=== PATIENT | male | born 1955 ===

== ENCOUNTER 2017-02-28 12:31 | Emergency (ER) | payer OTHER ==
[2017-02-28] MEDS ORDERED: Sodium Chloride 0.9% 1,000 ML IV STA (13:01)
--- NOTE | 2017-02-28 13:08 | ED PDOC ---
HPI: Abdomen Time Seen by Provider: 02/28/17 12:57 Chief Complaint (Nursing): Back Pain Chief Complaint (Provider): Back Pain History Per: Patient History/Exam Limitations: no limitations Onset/Duration Of Symptoms: Days (x 2) Additional Complaint(s): Dirk is a 61 year old male, with a past medical history of kidney stones, who presents to the emergency department with right flank pain radiating to front since last night. Denies nausea, vomiting, dysuria and fever. PMD: No Family Provider Past Medical History Reviewed: Historical Data, Nursing Documentation, Vital Signs Vital Signs: Last Vital Signs Temp 98.0 F 02/28/17 12:47 Pulse 74 02/28/17 12:47 Resp 16 02/28/17 12:47 BP 177/84 H 02/28/17 12:47 Pulse Ox 97 02/28/17 16:35 - Medical History Other PMH: Kidney stones - Surgical History Surgical History: No Surg Hx - Family History Family History: States: No Known Family Hx - Home Medications Home Medications: Ambulatory Orders Medication Instructions Recorded Ciprofloxacin HCl [Cipro] 500 mg PO BID #20 tab 02/28/17 Naproxen [Naprosyn] 500 mg PO Q12H #20 tab 02/28/17 Tamsulosin [Flomax] 0.4 mg PO DAILY #6 cap 02/28/17 - Allergies Allergies/Adverse Reactions: Allergies Allergy/AdvReac Type Severity Reaction Status Date / Time No Known Allergies Allergy Verified 02/28/17 12:47 Review of Systems ROS Statement: Except As Marked, All Systems Reviewed And Found Negative Constitutional: Negative for: Fever Gastrointestinal: Positive for: Other (Right Flank Pain radiating to front). Negative for: Nausea, Vomiting Genitourinary Male: Negative for: Dysuria Physical Exam - Reviewed Nursing Documentation Reviewed: Yes Vital Signs Reviewed: Yes - Physical Exam Gastrointestinal/Abdominal: Positive for: Soft. Negative for: Tenderness Back: Negative for: L CVA Tenderness, R CVA Tenderness - Laboratory Results Result Diagrams: 02/28/17 15:53 02/28/17 15:53 - ECG O2 Sat by Pulse Oximetry: 97 (RA) Pulse Ox Interpretation: Normal Medical Decision Making Medical Decision Making: Time: 12:59 Plan: - CT Abdominal and Pelvis without PO or IV Contrast - Urine Dipstick - Sodium Chloride 0.9% 1,000 ml IV 100 MLS/HR - Toradol 30 mg IVP Time: 13:56 CT Abdominal and Pelvis without PO or IV Contrast FINDINGS: LOWER THORAX: 4 millimeter nodule in the right lower lobe; recommend short-term interval follow-up CT scan of the chest. LIVER: Fatty infiltration of the liver. GALLBLADDER AND BILE DUCTS: Unremarkable. PANCREAS: Unremarkable. No gross lesion or ductal dilatation. SPLEEN: Unremarkable. ADRENALS: 1.3 centimeter nodule in the right adrenal gland; recommend correlation with noncontrast gradient echo MRI.. KIDNEYS AND URETERS: Bilateral punctate nonobstructive renal calculi with a 7 millimeter obstructive calculus in the proximal right ureter and associated hipolito ureteral and perirenal edema. VASCULATURE: Unremarkable. No aortic aneurysm. BOWEL: Unremarkable. No obstruction. No gross mural thickening. APPENDIX: Unremarkable. Normal appendix. PERITONEUM: Unremarkable. No free fluid. No free air. LYMPH NODES: Unremarkable. No enlarged lymph nodes. BLADDER: Unremarkable. REPRODUCTIVE: Unremarkable. BONES: No acute fracture. OTHER FINDINGS: None. IMPRESSION: Bilateral punctate nonobstructive renal calculi with a 7 millimeter obstructive calculus in the proximal right ureter and associated hipolito ureteral and perirenal edema. 1.3 centimeter nodule in the right adrenal gland; recommend correlation with noncontrast gradient echo MRI.. 4 millimeter nodule in the right lower lobe; recommend short-term interval follow-up CT scan of the chest. Time: 16:[address] Rebolledo. Time: 16:31 - Rocephin IV 1gm duplex 50 ml IVPB Scribe Attestation: Documented by Jai Washington, acting as a scribe for Ren Armijo MD Provider Scribe Attestation: All medical record entries made by the Scribe were at my direction and personally dictated by me. I have reviewed the chart and agree that the record accurately reflects my personal performance of the history, physical exam, medical decision making, and the department course for this patient. I have also personally directed, reviewed, and agree with the discharge instructions and disposition. Disposition - Clinical Impression Clinical Impression: Kidney stones - Patient ED Disposition Is Patient to be Admitted: No - Disposition Referrals: Rory Rebolledo MD [Staff Provider] - Disposition: Routine/Home Disposition Time: 16:37 Condition: FAIR Prescriptions: Ciprofloxacin HCl [Cipro] 500 mg PO BID #20 tab Naproxen [Naprosyn] 500 mg PO Q12H #20 tab Tamsulosin [Flomax] 0.4 mg PO DAILY #6 cap Instructions: Kidney Stones (ED) Forms: [email or web address] (Lao)
--- NOTE | 2017-02-28 13:57 | CT ---
PROCEDURE: CT Abdomen and Pelvis without intravenous contrast HISTORY: r/o kidney stone COMPARISON: None. TECHNIQUE: Technique. Contrast Dose: Radiation dose: Total exam DLP = mGy-cm. This CT exam was performed using one or more of the following dose reduction techniques: Automated exposure control, adjustment of the mA and/or kV according to patient size, and/or use of iterative reconstruction technique. FINDINGS: LOWER THORAX: 4 millimeter nodule in the right lower lobe; recommend short-term interval follow-up CT scan of the chest. LIVER: Fatty infiltration of the liver. GALLBLADDER AND BILE DUCTS: Unremarkable. PANCREAS: Unremarkable. No gross lesion or ductal dilatation. SPLEEN: Unremarkable. ADRENALS: 1.3 centimeter nodule in the right adrenal gland; recommend correlation with noncontrast gradient echo MRI.. KIDNEYS AND URETERS: Bilateral punctate nonobstructive renal calculi with a 7 millimeter obstructive calculus in the proximal right ureter and associated hipolito ureteral and perirenal edema. VASCULATURE: Unremarkable. No aortic aneurysm. BOWEL: Unremarkable. No obstruction. No gross mural thickening. APPENDIX: Unremarkable. Normal appendix. PERITONEUM: Unremarkable. No free fluid. No free air. LYMPH NODES: Unremarkable. No enlarged lymph nodes. BLADDER: Unremarkable. REPRODUCTIVE: Unremarkable. BONES: No acute fracture. OTHER FINDINGS: None. IMPRESSION: Bilateral punctate nonobstructive renal calculi with a 7 millimeter obstructive calculus in the proximal right ureter and associated hipolito ureteral and perirenal edema. 1.3 centimeter nodule in the right adrenal gland; recommend correlation with noncontrast gradient echo MRI.. 4 millimeter nodule in the right lower lobe; recommend short-term interval follow-up CT scan of the chest.
[2017-02-28 16:08] LABS: ALB/GLOB RATIO 1.3 (1.0-2.1); ALKALINE PHOSPHATASE 81 U/L (38-126); ALT/SGPT 51 U/L (21-72); AST/SGOT 29 U/L (17-59); BILIRUBIN,TOTAL 0.5 mg/dl (0.2-1.3); BLOOD UREA NITROGEN 16 mg/dl (9-20); CALCIUM 9.2 mg/dL (8.4-10.2); CARBON DIOXIDE 20 mmol/L (22-30); CHLORIDE 110 mmol/L (98-107); GFR AFRICAN-AMERICAN > 60; GLUCOSE,RANDOM 128 mg/dL (75-110); POTASSIUM 4.2 MMOL/L (3.6-5.0); SODIUM 142 mmol/l (132-148); TOTAL PROTEIN 7.9 G/DL (6.3-8.2)
[2017-02-28 16:26] LABS: BASO # 0.1 K/uL (0.0-0.2); BASO % 0.6 % (0.0-2.0); EOS % 0.3 % (0.0-4.0); HEMATOCRIT 47.2 % (35.0-51.0); LYMPH # 1.4 K/uL (1.0-4.3); LYMPH % 9.1 % (20.0-40.0); MEAN CORPUSCULAR HEMOGLOBIN 29.3 pg (27.0-31.0); MEAN PLATELET VOLUME 8.8 fl (7.2-11.7); MONO % 6.6 % (0.0-10.0); NEUT # 12.5 K/uL (1.8-7.0); NEUT % 83.4 % (50.0-75.0); PLATELET COUNT 240 K/uL (130-400); RED CELL DISTRIBUTION WIDTH 13.6 % (11.5-14.5)
[2017-02-28] MEDS ORDERED: cefTRIAXone IV 1 gm in Dextros 50 ML IVPB STA (16:31)
[2017-02-28 17:42] LABS: NEUTROPHIL 76 % (42-75); TOTAL CELLS COUNTED 100
[2017-02-28 17:58] VITALS: BP 128/78; PULSE 78; RESP 17; TEMP 97; O2SAT 98
== END 2017-02-28 17:58 | disposition home or self-care (01) ==
LOC: H.ER 12:31
DX: N20.2 Calculus of kidney with calculus of ureter (principal)
CPT/HCPCS: 74176; 80053; 85025; 87086; 96374; 96375; 96376; 99282; J0696; J1885; J7040

== ENCOUNTER 2017-03-03 13:59 | Emergency (ER) | payer OTHER ==
[2017-03-03 14:07] VITALS: RESP 16; TEMP 98; O2SAT 100
[2017-03-03] MEDS ORDERED: Oxycodone/Acetaminophen 5/325 mg Tab PO STA (14:33)
--- NOTE | 2017-03-03 14:51 | ED PDOC ---
HPI: Back Time Seen by Provider: 03/03/17 14:10 Chief Complaint (Nursing): Back Pain Chief Complaint (Provider): Right Flank Pain History Per: Patient History/Exam Limitations: no limitations Onset/Duration Of Symptoms: Days (few days prior to arrival ) Current Symptoms Are (Timing): Still Present Additional Complaint(s): Dirk Henry is a 61 year old male presenting to the ED for an evaluation of peristent right flank pain from a previous diagnosis of a 7 mm kidney stone. The patient reports receiving pain killers, Naprosyn, taken without relief. He additionally states that he has a follow up appointment with his urologist next week, but the persistent pain prompted his ED visit today. PMD: None Provided Past Medical History Reviewed: Historical Data, Nursing Documentation, Vital Signs Vital Signs: Last Vital Signs Temp 98.0 F 03/03/17 14:06 Pulse 106 H 03/03/17 14:06 Resp 16 03/03/17 14:06 BP 171/96 H 03/03/17 14:06 Pulse Ox 100 03/03/17 14:06 - Medical History PMH: No Chronic Diseases - Surgical History Surgical History: No Surg Hx - Family History Family History: States: No Known Family Hx - Home Medications Home Medications: Ambulatory Orders Medication Instructions Recorded Ciprofloxacin HCl [Cipro] 500 mg PO BID #20 tab 02/28/17 Naproxen [Naprosyn] 500 mg PO Q12H #20 tab 02/28/17 Tamsulosin [Flomax] 0.4 mg PO DAILY #6 cap 02/28/17 oxyCODONE/Acetaminophen [Percocet 1 tab PO Q4H #24 tab 03/03/17 5/325 mg Tab] - Allergies Allergies/Adverse Reactions: Allergies Allergy/AdvReac Type Severity Reaction Status Date / Time No Known Allergies Allergy Verified 02/28/17 12:47 Review of Systems ROS Statement: Except As Marked, All Systems Reviewed And Found Negative Constitutional: Negative for: Fever, Chills Musculoskeletal: Positive for: Back Pain (right flank pain) Physical Exam - Reviewed Nursing Documentation Reviewed: Yes Vital Signs Reviewed: Yes - Physical Exam Appears: Positive for: Non-toxic. Negative for: No Acute Distress (patient is in minor distress secondary to pain) Head Exam: Positive for: ATRAUMATIC, NORMOCEPHALIC Skin: Positive for: Normal Color, Warm, Dry Eye Exam: Positive for: Normal appearance, EOMI ENT: Positive for: Normal ENT Inspection Neck: Positive for: Normal, Painless ROM Cardiovascular/Chest: Positive for: Regular Rate, Rhythm. Negative for: Edema, Murmur Respiratory: Positive for: Normal Breath Sounds. Negative for: Respiratory Distress Gastrointestinal/Abdominal: Positive for: Normal Exam, Soft. Negative for: Tenderness Back: Positive for: Normal Inspection. Negative for: L CVA Tenderness, R CVA Tenderness Extremity: Positive for: Normal ROM. Negative for: Deformity Neurologic/Psych: Positive for: Alert, Oriented (x3). Negative for: Motor/ Sensory Deficits - ECG O2 Sat by Pulse Oximetry: 100 (RA) Pulse Ox Interpretation: Normal Medical Decision Making Medical Decision Making: Time: 14:10 Impression: persistent right flank pain s/p 7 mm kidney stone diagnosis Plan: * Percocet 5/325 mg Tab 1 tab PO Checked registry, pt has had no opiod prescriptions within past year. Discussed with pt possible addiction/abuse effects of opiod rx. Patient understands consequences of addiction. Scribe Attestation: Documented by Mere White, acting as a scribe for Vishal Henderson MD. Provider Scribe Attestation: All medical record entries made by the Scribe were at my direction and personally dictated by me. I have reviewed the chart and agree that the record accurately reflects my personal performance of the history, physical exam, medical decision making, and the department course for this patient. I have also personally directed, reviewed, and agree with the discharge instructions and disposition. Disposition - Clinical Impression Clinical Impression: Renal colic - Disposition Disposition: Routine/Home Disposition Time: 14:33 Condition: STABLE Prescriptions: oxyCODONE/Acetaminophen [Percocet 5/325 mg Tab] 1 tab PO Q4H #24 tab Instructions: Renal Colic (ED) Forms: [employer] (Lao)
[2017-03-03] MEDS ORDERED: Oxycodone/Acetaminophen 5/325 mg Tab ONE (14:56)
[2017-03-03 15:04] VITALS: BP 150/89; PULSE 92
== END 2017-03-03 15:02 | disposition home or self-care (01) ==
LOC: H.ER 13:59
DX: N23 Unspecified renal colic (principal)

== ENCOUNTER 2017-05-19 14:41 | Emergency (ER) | payer SELFPAY ==
[2017-05-19 15:19] VITALS: BP 121/76; PULSE 71; RESP 20; TEMP 98.6; O2SAT 97
[2017-05-19] MEDS ORDERED: Dexamethasone 4 mg/1 ml ONE (16:06)
--- NOTE | 2017-05-19 16:06 | ED PDOC ---
Lower Extremity Pain/Injury Time Seen by Provider: 05/19/17 16:03 Chief Complaint (Nursing): Lower Extremity Problem/Injury Chief Complaint (Provider): Sciatica Pain History Per: Patient History/Exam Limitations: no limitations Onset/Duration Of Symptoms: Days, Waxing/Waning, Gradual, Persistent, Worse Since (three days; pt home medicating on apap and naproxen without success) Current Symptoms Are (Timing): Still Present Severity: Mild - Risk Factors DVT Risk Factors: Pos: None Neg: Decreased Mobility, Decreased Activity, Extremity Immobiliztion, Extremity Fractured Past Medical History Vital Signs: Last Vital Signs Temp 98.6 F 05/19/17 15:17 Pulse 71 05/19/17 15:17 Resp 20 05/19/17 15:17 BP 121/76 05/19/17 15:17 Pulse Ox 97 05/19/17 15:17 - Family History Family History: States: No Known Family Hx - Home Medications Home Medications: Ambulatory Orders Medication Instructions Recorded Ciprofloxacin HCl [Cipro] 500 mg PO BID #20 tab 02/28/17 Naproxen [Naprosyn] 500 mg PO Q12H #20 tab 02/28/17 Tamsulosin [Flomax] 0.4 mg PO DAILY #6 cap 02/28/17 oxyCODONE/Acetaminophen [Percocet 1 tab PO Q4H #24 tab 03/03/17 5/325 mg Tab] - Allergies Allergies/Adverse Reactions: Allergies Allergy/AdvReac Type Severity Reaction Status Date / Time No Known Allergies Allergy Verified 05/19/17 15:16 Wells Criteria for PE - Wells Criteria for Pulmonary Embolism Clinical Signs and Symptoms of DVT: No P.E is #1 Diagnosis, or Equally Likely: No Heart Rate >100: No Immobilization at least 3 days;Surgery previous 4 weeks: No Previous, objectively diagnosed PE or DVT: No Hemoptysis: No Malignancy w/treatment within 6 months, or palliative: No Total Score: 0 Review of Systems Musculoskeletal: Positive for: Leg Pain (left leg pain originating in dorsal left hip and transiting to dorsal foot) Physical Exam - Reviewed Nursing Documentation Reviewed: Yes Vital Signs Reviewed: Yes - Physical Exam Appears: Positive for: Well Skin: Positive for: Normal Color Cardiovascular/Chest: Positive for: Regular Rate, Rhythm Respiratory: Positive for: Normal Breath Sounds. Negative for: Accessory Muscle Use, Crackles, Rales, Stridor, Wheezing, Respiratory Distress, Plerual Rub Pulses-Dorsalis Pedis (L): 2+ Pulses-Dorsalis Pedis (R): 2+ Pulses-Post. Tibialis (L): 2+ Pulses-Post. Tibialis (R): 2+ Extremity: Positive for: Normal ROM. Negative for: Tenderness, Calf Tenderness , Swelling - ECG O2 Sat by Pulse Oximetry: 97 Medical Decision Making Medical Decision Making: clinical sciatic pain and pt incicates that he has been previously dx with sciatica. Will medicate with toradol,apap and decadron; refer to PMD for follow up and management of chronic pain and condition Disposition - Clinical Impression Clinical Impression: Sciatic leg pain - Disposition Referrals: [facility] [Outside] Disposition Time: 16:39 Condition: IMPROVED Instructions: Sciatica, Sciatica Exercises Forms: [facility] (Belizean)
== END 2017-05-19 16:39 | disposition home or self-care (01) ==
LOC: H.ER 14:41
DX: M25.552 Pain in left hip (principal); M54.32 Sciatica, left side; G89.29 Other chronic pain
CPT/HCPCS: 96372; 99283; J1100; J1885

== ENCOUNTER 2018-07-04 09:05 | Emergency (ER) | payer SELFPAY ==
[2018-07-04 09:08] VITALS: BP 161/83; PULSE 86; RESP 18; TEMP 97.9; O2SAT 96
[2018-07-04 09:09] VITALS: BMI 30.2
--- NOTE | 2018-07-04 10:02 | ED PDOC ---
HPI: CCC, URI, Sore Throat Time Seen by Provider: 07/04/18 09:21 Chief Complaint (Nursing): ENT Problem Chief Complaint (Provider): ENT Problem History Per: Patient History/Exam Limitations: no limitations Onset/Duration Of Symptoms: Days (x3) Current Symptoms Are (Timing): Still Present Location Of Pain: Ear(s) Additional Complaint(s): Patient is a 63 year old male no past medical history, who presents to the emergency department complaining of right ear pain, onset x3 days. He reports that he recently has had worsened allergies and that his ears started out as being itchy. He continues to states that he frequently used Q-tips and feels that is what has exacerbated the pain. Patient's allergies have been controlled by medications but he states he has noticed slight drainage of liquid from his ears when he wakes up in the morning. He denies having any fever, but does have difficulty hearing in his right ear. PMD: Koko Gannon Past Medical History Reviewed: Historical Data, Nursing Documentation, Vital Signs Vital Signs: Last Vital Signs Temp 97.9 F 07/04/18 09:07 Pulse 86 07/04/18 09:07 Resp 18 07/04/18 09:07 BP 161/83 H 07/04/18 09:07 Pulse Ox 96 07/04/18 09:07 - Medical History PMH: No Chronic Diseases - Surgical History Surgical History: No Surg Hx - Family History Family History: States: Unknown Family Hx - Immunization History Hx Tetanus Toxoid Vaccination: No Hx Influenza Vaccination: No Hx Pneumococcal Vaccination: No - Home Medications Home Medications: Ambulatory Orders Medication Instructions Recorded Ciprofloxacin HCl [Cipro] 500 mg PO BID #20 tab 02/28/17 Naproxen [Naprosyn] 500 mg PO Q12H #20 tab 02/28/17 Tamsulosin [Flomax] 0.4 mg PO DAILY #6 cap 02/28/17 oxyCODONE/Acetaminophen [Percocet 1 tab PO Q4H #24 tab 03/03/17 5/325 mg Tab] Neomycin/Polymyxin/Hydrocort 4 drop AU Q6 #1 bottle 07/04/18 [Cortisporin Otic Soln] - Allergies Allergies/Adverse Reactions: Allergies Allergy/AdvReac Type Severity Reaction Status Date / Time No Known Allergies Allergy Verified 05/19/17 15:16 Review of Systems ROS Statement: Except As Marked, All Systems Reviewed And Found Negative Constitutional: Negative for: Fever ENT: Positive for: Ear Pain, Ear Discharge, Other (difficulty hearing in right ear) Physical Exam - Reviewed Nursing Documentation Reviewed: Yes Vital Signs Reviewed: Yes - Physical Exam Appears: Positive for: Non-toxic, No Acute Distress Head Exam: Positive for: ATRAUMATIC, NORMOCEPHALIC Skin: Positive for: Normal Color, Warm, Dry Eye Exam: Positive for: Normal appearance, EOMI, PERRL ENT: Positive for: TM Is/Are (Unable to visualize right TM due to sweling; Left TM: non bulging, no erythema ), Other (swelling, erythema and discharge to both ears, worse on right) Neck: Positive for: Normal, Painless ROM, Supple Cardiovascular/Chest: Positive for: Regular Rate, Rhythm. Negative for: Murmur Respiratory: Positive for: Normal Breath Sounds. Negative for: Respiratory Distress Gastrointestinal/Abdominal: Positive for: Normal Exam, Soft. Negative for: Tenderness Back: Positive for: Normal Inspection. Negative for: L CVA Tenderness, R CVA Tenderness, Vertebral Tenderness Extremity: Positive for: Normal ROM. Negative for: Pedal Edema, Deformity Neurological/Psych: Positive for: Alert, Oriented - ECG O2 Sat by Pulse Oximetry: 96 (RA) Pulse Ox Interpretation: Normal Medical Decision Making Medical Decision Making: Time: 920 A/P: Work up for bilateral [place] Externa with worse on right. --Patient was discharged with a Rx of antibiotic ear drops. --Patient instructed to follow up with PMD and clinic in 3-5 days. Scribe Attestation: Documented by Tyrell Genao, acting as a scribe Cookie Stack MD. Provider Scribe Attestation: All medical record entries made by the Scribe were at my direction and personally dictated by me. I have reviewed the chart and agree that the record accurately reflects my personal performance of the history, physical exam, medical decision making, and the department course for this patient. I have also personally directed, reviewed, and agree with the discharge instructions and disposition. Disposition - Clinical Impression Clinical Impression: Otitis externa - Disposition Referrals: [facility] [Outside] Disposition Time: 09:54 Condition: STABLE Additional Instructions: Apply ear drops to both ears every 6 to 8 hours for 7 days. Continue to take allergy medication and all other medications as prescribed by your primary doctor. Follow up with your primary doctor in 3 to 5 days. Return to the emergency department if symptoms worsen or if new symptoms develop. Prescriptions: Neomycin/Polymyxin/Hydrocort [Cortisporin Otic Soln] 4 drop AU Q6 #1 bottle Instructions: Outer Ear Infection (DC) Forms: [facility] (Haitian) Print Language: FAROESE
== END 2018-07-04 10:00 | disposition home or self-care (01) ==
LOC: H.ER 09:05
DX: H60.501 Unspecified acute noninfective otitis externa, right ear (principal)